=== PATIENT | male | born 1965 | race Caucasian/White ===

== ENCOUNTER 2023-09-13 06:12 | Day surgery (SDC) | payer OTHER, SELFPAY ==
[2023-09-13 07:21] VITALS: BMI 57.7
[2023-09-13 07:22] VITALS: BMI 57.7
[2023-09-13 07:23] VITALS: BP 120/86
[2023-09-13 07:45] LABS: Glucose - Point of Care 113 mg/dl (70-99)
[2023-09-13 08:23] VITALS: BP 116/77
[2023-09-13 08:30] VITALS: BP 97/52
[2023-09-13 08:45] VITALS: BP 91/66
== END 2023-09-13 08:55 | disposition home or self-care (01) ==
LOC: SDS 06:12
PROVIDERS: ATTENDING PHYSICIAN Internal Medicine Gastroenterology
DX: Z12.11 Encounter for screening for malignant neoplasm of colon (principal); Z53.9 Procedure and treatment not carried out, unspecified reason; K22.2 Esophageal obstruction; K44.9 Diaphragmatic hernia without obstruction or gangrene; R12 Heartburn; Z98.84 Bariatric surgery status
CPT/HCPCS: 45378; 43235; 82962

== ENCOUNTER → 2024-01-13 13:52 | Outpatient (REF) | payer OTHER, SELFPAY | LOC: RCS 13:52 | PROVIDERS: ATTENDING PHYSICIAN Nurse Practitioner; FAMILY PHYSICIAN Internal Medicine | DX: I50.20 Unspecified systolic (congestive) heart failure (principal) | CPT/HCPCS: 93306; Q9950 ==

== ENCOUNTER → 2024-12-28 12:56 | Outpatient (REF) | payer OTHER, SELFPAY | LOC: RCS 12:56 | PROVIDERS: ATTENDING PHYSICIAN Internal Medicine Cardiovascular Disease; FAMILY PHYSICIAN Internal Medicine | DX: I50.20 Unspecified systolic (congestive) heart failure (principal) | CPT/HCPCS: 93306 ==